=== PATIENT | female | born 1995 | race Caucasian/White ===

== ENCOUNTER 2018-10-06 05:26 | Emergency (ER) | payer MEDICAID, OTHER ==
[2018-10-06] MEDS: IBUPROFEN 600 MG TAB PO (06:18)
== END 2018-10-06 07:25 | disposition home or self-care (01) ==
LOC: E/R 05:26
DX: S61.210A Laceration without foreign body of right index finger without damage to nail, initial encounter (principal); J45.909 Unspecified asthma, uncomplicated; X99.1XXA Assault by knife, initial encounter
CPT/HCPCS: 73130; 73130-RT; 99283-25